=== PATIENT | female | born 1995 | race Caucasian/White ===

== ENCOUNTER 2017-01-20 17:04 | Inpatient (IN) | payer MEDICAID ==
[~2017-01-20] VITALS: Ht 157.5 cm; Wt 46.7 kg
[2017-01-20 18:11] LABS: BASOPHILS % (AUTO) 0.6 % (0.0-2.0); EOSINOPHILS % (AUTO) 1.6 % (1.0-6.0); HEMATOCRIT 43.3 % (36-46); HEMOGLOBIN 14.7 g/dL (12.0-16.0); LYMPHOCYTES # (AUTO) 1.8 K/uL (1.0-4.8); LYMPHOCYTES % (AUTO) 21.2 % (22.0-44.0); MEAN CORPUSCULAR HEMOGLOBIN 31.7 pg (26.0-34.0); MEAN CORPUSCULAR VOLUME 93 fL (80-100); MONOCYTES # (AUTO) 0.7 K/uL (0.1-1.0); MONOCYTES % (AUTO) 8.3 % (2.0-9.0); NEUTROPHILS # (AUTO) 5.7 K/uL (1.8-7.7); NEUTROPHILS % (AUTO) 68.3 % (40.0-70.0); PLATELET COUNT (AUTO) 184 K/uL (150-450); RED BLOOD CELL COUNT(AUTO) 4.63 MIL/uL (4.00-5.20); WHITE BLOOD COUNT (AUTO) 8.4 K/uL (4.5-11.0)
[2017-01-20 18:18] LABS: ANION GAP 12 mmol/L (8-16); CALCIUM, TOTAL 9.6 mg/dL (8.8-10.5); CARBON DIOXIDE 25 mmol/L (22-29); CHLORIDE 104 mmol/L (98-107); CREATININE 0.89 mg/dL (0.60-1.30); GLOMERULAR FILTR. RATE CALC > 60 mL/min (>60); POTASSIUM 3.9 mmol/L (3.5-5.1); SODIUM SERUM 141 mmol/L (136-145); UREA NITROGEN, BLOOD 13 mg/dL (7-18)
[2017-01-20 18:23] LABS: ALANINE AMINOTRANSFERASE 17 U/L (12-78); ALBUMIN 4.4 g/dL (3.4-5.0); ASPARTATE AMINOTRANSFERASE 16 U/L (15-37); BILIRUBIN,TOTAL 0.9 mg/dL (0.1-1.0); TOTAL PROTEIN, SERUM 8.2 g/dL (6.4-8.2)
[2017-01-20] MEDS ORDERED: LORazepam 2 MG TABLET PO PRN (22:00)
[2017-01-20] MEDS ORDERED: HALOPERIDOL 5 MG TABLET PO PRN (22:00)
[2017-01-20] MEDS ORDERED: ZOLPIDEM TARTRATE 10 MG TABLET PO PRN (22:00)
[2017-01-20 22:09] LABS: CHOL/HDL RATIO 2.5 (3.9-5.7)
[2017-01-20 22:12] LABS: APPEARANCE,URINE TURBID (CLEAR); GLUCOSE, URINE (UA) NEGATIVE (NEGATIVE); KETONES,URINE 40 mg/dL (NEGATIVE); LEUKOCYTE ESTERASE ,URINE MODERATE (NEGATIVE); OCCULT BLOOD,URINE NEGATIVE (NEGATIVE); PROTEIN,URINE NEGATIVE (NEGATIVE)
[2017-01-20 22:26] LABS: ADD UA MICROSCOPIC YES
[2017-01-20 22:37] LABS: AMORPHOUS SEDIMENT,UR Many /LPF (None Seen); RBC,URINE None Seen /HPF (0-2)
[2017-01-21 03:33] VITALS: BP 124/85
[2017-01-21 08:15] VITALS: BP 126/73
[2017-01-21] MEDS: SERTRALINE HCL 50 MG TABLET PO SCH (14:12)
[2017-01-21 16:08] VITALS: BP 117/78
[2017-01-21] MEDS: SULFAMETHOX/TRIMETH DS 800-160 MG/TABLET PO SCH (16:47)
[2017-01-21] MEDS ORDERED: NITROFURANTOIN/NITROFURAN MAC 100 MG CAPSULE [MACROBID] PO SCH (17:00)
[2017-01-22 06:00] VITALS: BP 127/67
[2017-01-22 08:02] VITALS: BP 118/75
[2017-01-22] MEDS: SERTRALINE HCL 50 MG TABLET PO SCH (09:18)
[2017-01-22] MEDS: SULFAMETHOX/TRIMETH DS 800-160 MG/TABLET PO SCH ×2 (09:18→16:34)
[2017-01-22 17:48] VITALS: BP 118/76
[2017-01-23 06:17] VITALS: BP 110/61
[2017-01-23 08:30] VITALS: BP 112/68
[2017-01-23] MEDS: SULFAMETHOX/TRIMETH DS 800-160 MG/TABLET PO SCH (09:07)
[2017-01-23] MEDS: SERTRALINE HCL 50 MG TABLET PO SCH (09:07)
[2017-01-23] MEDS ORDERED: SERT50TA12 PO (11:39)
[2017-01-23] MEDS ORDERED: SULF1TAB42 PO (11:39)
== END 2017-01-23 12:30 | disposition home or self-care (01) | DRG 751 ==
LOC: EMS 17:06 → B2S 22:30
PROVIDERS: ADMIT Psychiatry & Neurology Child & Adolescent Psychiatry; ATTEND Psychiatry & Neurology Child & Adolescent Psychiatry
DX: F33.2 Major depressive disorder, recurrent severe without psychotic features (principal); R45.851 Suicidal ideations; N39.0 Urinary tract infection, site not specified; F41.9 Anxiety disorder, unspecified; D64.9 Anemia, unspecified; F12.10 Cannabis abuse, uncomplicated; Z79.899 Other long term (current) drug therapy; Z83.3 Family history of diabetes mellitus; F15.90 Other stimulant use, unspecified, uncomplicated; F17.200 Nicotine dependence, unspecified, uncomplicated; Z71.6 Tobacco abuse counseling
CPT/HCPCS: 99285; G0480

== ENCOUNTER 2019-03-29 08:28 | Inpatient (IN) | payer MEDICAID, OTHER ==
[~2019-03-29] VITALS: Ht 162.6 cm; Wt 54.2 kg
[~2019-03-29 08:28] MED LIST: FLUO-191 PO; NALT50TA PO
[2019-03-29] MEDS ORDERED: HYDR-4061 PO (08:35)
[2019-03-29] MEDS ORDERED: SODIUM CHLORIDE 0.9% 1,000 ML IV ONE (08:45)
[2019-03-29] MEDS ORDERED: ONDANSETRON HCL 4 MG/2 ML VIAL IVP ONE ×2 (08:45→10:45)
[2019-03-29] MEDS ORDERED: ONDANSETRON HCL 4 MG/2 ML VIAL ONE (08:46)
[2019-03-29] MEDS ORDERED: NALOXONE HCL 1 MG/ML 2 ML SYG IVP ONE (09:00)
[2019-03-29 09:35] LABS: BASOPHILS % (AUTO) 0.2 % (0.0-2.0); EOSINOPHILS % (AUTO) 0.6 % (1.0-6.0); HEMATOCRIT 40.4 % (36-46); HEMOGLOBIN 13.5 g/dL (12.0-16.0); LYMPHOCYTES % (AUTO) 6.2 % (22.0-44.0); MEAN CORPUSCULAR HEMOGLOBIN 31.9 pg (26.0-34.0); MEAN CORPUSCULAR HGB CONC 33.5 G/dL (31.0-37.0); MEAN CORPUSCULAR VOLUME 95 fL (80-100); MONOCYTES # (AUTO) 0.6 K/uL (0.1-1.0); MONOCYTES % (AUTO) 3.5 % (2.0-9.0); NEUTROPHILS # (AUTO) 14.4 K/uL (1.8-7.7); PLATELET COUNT (AUTO) 162 K/uL (150-450); RED BLOOD CELL COUNT(AUTO) 4.24 MIL/uL (4.00-5.20); RED CELL DISTRIBUTION WIDTH 12.9 % (11.5-14.5)
[2019-03-29 09:39] LABS: NEUTROPHILS % (AUTO) 89.5 % (40.0-70.0)
[2019-03-29 09:47] LABS: ANION GAP 11 mmol/L (8-16); CALCIUM, TOTAL 7.7 mg/dL (8.8-10.5); CARBON DIOXIDE 23 mmol/L (22-29); CHLORIDE 104 mmol/L (98-107); CREATININE 0.68 mg/dL (0.60-1.30); GLOMERULAR FILTR. RATE CALC > 60 mL/min (>60); GLUCOSE,RANDOM 211 mg/dL (70-110); POTASSIUM 3.3 mmol/L (3.5-5.1); SODIUM SERUM 138 mmol/L (136-145); UREA NITROGEN, BLOOD 6 mg/dL (7-18)
[2019-03-29 09:51] LABS: AMPHET/METH SCREEN,URINE NEGATIVE (NEGATIVE); BARBITURATE SCREEN, URINE NEGATIVE (NEGATIVE); BENZODIAZEPINES SCREEN,URINE NEGATIVE (NEGATIVE); CANNABINOID SCREEN,URINE POSITIVE (NEGATIVE); COCAINE SCREEN,URINE NEGATIVE (NEGATIVE); METHADONE SCREEN, URINE NEGATIVE (NEGATIVE); OPIATE SCREEN,URINE POSITIVE (NEGATIVE)
[2019-03-29 09:52] LABS: PHENCYCLIDINE SCREEN,URINE NEGATIVE (NEGATIVE)
[2019-03-29 09:53] LABS: ACETAMINOPHEN 46 mcg/mL (10-30); ALANINE AMINOTRANSFERASE 11 U/L (12-78); ALBUMIN 3.5 g/dL (3.4-5.0); ALKALINE PHOSPHATASE 81 U/L (46-116); ASPARTATE AMINOTRANSFERASE 11 U/L (15-37); BILIRUBIN,TOTAL 0.4 mg/dL (0.1-1.0); TOTAL PROTEIN, SERUM 6.8 g/dL (6.4-8.2)
[2019-03-29 10:10] LABS: SALICYLATE 1.4 mg/dL (2.8-20.0)
[2019-03-29] MEDS ORDERED: ZOLPIDEM TARTRATE 10 MG TABLET PO PRN (15:15)
[2019-03-29] MEDS ORDERED: HALOPERIDOL 5 MG TABLET PO PRN (15:15)
[2019-03-29] MEDS ORDERED: LORazepam 2 MG TABLET PO PRN (15:15)
[2019-03-29 20:59] VITALS: BP 133/113
[2019-03-29] MEDS ORDERED: INFLUENZA VIRUS VACCINE QVS 2019-20 (3YR+)/PF 60 MCG/0.5 ML SYRINGE IM ONE (23:15)
[2019-03-30 03:50] VITALS: BP 124/75
[2019-03-30 06:57] LABS: CHOL/HDL RATIO 1.8 (3.9-5.7); FREE T4 (FREE THYROXINE) 1.32 ng/dL (0.76-1.46); THYROID STIMULATING HORMONE 0.99 uIU/mL (0.36-3.74)
[2019-03-30 08:00] VITALS: BP 114/64
[2019-03-30] MEDS ORDERED: LOPERAMIDE HCL 2 MG CAPSULE PO PRN (10:15)
[2019-03-30] MEDS ORDERED: ACETAMINOPHEN 325 MG TABLET PO PRN (10:15)
[2019-03-30] MEDS ORDERED: IBUPROFEN 600 MG TABLET PO PRN (10:15)
[2019-03-30] MEDS ORDERED: ONDANSETRON HCL 4 MG TABLET PO PRN (10:15)
[2019-03-30] MEDS ORDERED: OMEPRAZOLE 20 MG CAPSULE PO PRN (10:15)
[2019-03-30] MEDS ORDERED: BACITRACIN 28.4 GM OINTMENT TP PRN (10:15)
[2019-03-30] MEDS ORDERED: BENZOCAINE/MENTHOL LOZENGE MM PRN (10:15)
[2019-03-30] MEDS ORDERED: MAG HYDROX/AL HYDROX/SIMETH ES 30 ML SUSPENSION UDCUP PO PRN (10:15)
[2019-03-30] MEDS ORDERED: DOCUSATE SODIUM 100 MG CAPSULE PO PRN (10:15)
[2019-03-30] MEDS ORDERED: ALBUTEROL SULFATE HFA 90 MCG/PUFF 8 GM INHALER IH PRN (10:15)
[2019-03-30] MEDS ORDERED: CloNIDine HCL 0.1 MG TABLET PO PRN (10:15)
[2019-03-30] MEDS ORDERED: PETROLATUM,WHITE 28 GM JELLY TP PRN (10:15)
[2019-03-30] MEDS ORDERED: MAGNESIUM HYDROXIDE SUSPENSION 30 ML UDCUP PO PRN (10:15)
[2019-03-30] MEDS: BuPROPion HCL XL 150 MG ER TABLET PO SCH (11:11)
[2019-03-30 19:42] VITALS: BP 112/77
[2019-03-31 08:40] LABS: HEMOGLOBIN A1C 5.1 % (4.5-6.2)
[2019-03-31 08:44] LABS: BASOPHILS % (AUTO) 0.6 % (0.0-2.0); EOSINOPHILS % (AUTO) 2.4 % (1.0-6.0); HEMATOCRIT 41.6 % (36-46); LYMPHOCYTES # (AUTO) 1.2 K/uL (1.0-4.8); LYMPHOCYTES % (AUTO) 16.1 % (22.0-44.0); MEAN CORPUSCULAR HEMOGLOBIN 31.3 pg (26.0-34.0); MEAN CORPUSCULAR HGB CONC 33.7 G/dL (31.0-37.0); MEAN CORPUSCULAR VOLUME 93 fL (80-100); MONOCYTES # (AUTO) 0.3 K/uL (0.1-1.0); NEUTROPHILS # (AUTO) 5.9 K/uL (1.8-7.7); NEUTROPHILS % (AUTO) 76.9 % (40.0-70.0); PLATELET COUNT (AUTO) 191 K/uL (150-450); RED BLOOD CELL COUNT(AUTO) 4.48 MIL/uL (4.00-5.20); RED CELL DISTRIBUTION WIDTH 12.8 % (11.5-14.5)
[2019-03-31 08:52] LABS: ANION GAP 9 mmol/L (8-16); CALCIUM, TOTAL 8.6 mg/dL (8.8-10.5); CARBON DIOXIDE 26 mmol/L (22-29); CHLORIDE 102 mmol/L (98-107); CREATININE 0.74 mg/dL (0.60-1.30); GLOMERULAR FILTR. RATE CALC > 60 mL/min (>60); GLUCOSE,RANDOM 145 mg/dL (70-110); PHOSPHORUS 2.9 mg/dL (2.5-4.9); POTASSIUM 3.5 mmol/L (3.5-5.1); SODIUM SERUM 137 mmol/L (136-145); UREA NITROGEN, BLOOD 9 mg/dL (7-18)
[2019-03-31 08:53] LABS: ACETAMINOPHEN < 2 mcg/mL (10-30)
[2019-03-31] MEDS: BuPROPion HCL XL 150 MG ER TABLET PO SCH (09:07)
[2019-03-31 09:20] VITALS: BP 111/76
[2019-03-31 17:34] VITALS: BP 134/83
[2019-04-01] MEDS: BuPROPion HCL XL 150 MG ER TABLET PO SCH (08:33)
[2019-04-01 08:48] VITALS: BP 122/76
[2019-04-01] MEDS ORDERED: BUPR-93 PO (14:58)
== END 2019-04-01 16:05 | disposition home or self-care (01) | DRG 751 ==
LOC: EMS 08:29 → 3EI 15:30
PROVIDERS: ADMIT Psychiatry & Neurology Psychiatry; ATTEND Psychiatry & Neurology Psychiatry
DX: F33.2 Major depressive disorder, recurrent severe without psychotic features (principal); F41.9 Anxiety disorder, unspecified; G47.00 Insomnia, unspecified; K59.00 Constipation, unspecified; T39.1X2A Poisoning by 4-Aminophenol derivatives, intentional self-harm, initial encounter; Y92.89 Other specified places as the place of occurrence of the external cause; Z79.899 Other long term (current) drug therapy; Z28.21 Immunization not carried out because of patient refusal
CPT/HCPCS: 83036; 83735; 84100; 84436; 84439; 84443; 93005; 96361; 96374; 96375; G0480; G0481; J2310; J2405; J7030

== ENCOUNTER 2019-04-20 16:41 | Emergency (ER) | payer MEDICAID, OTHER ==
[~2019-04-20 16:41] MED LIST changes: +BUPR-93 PO; -FLUO-191 PO; -NALT50TA PO
== END 2019-04-20 17:01 | disposition left against medical advice (07) ==
LOC: EMS 16:42
DX: Z00.00 Encounter for general adult medical examination without abnormal findings (principal); Z53.21 Procedure and treatment not carried out due to patient leaving prior to being seen by health care provider

== ENCOUNTER 2019-07-09 16:03 | Inpatient (IN) | payer MEDICAID, OTHER ==
[~2019-07-09] VITALS: Ht 162.6 cm; Wt 60.3 kg
[2019-07-09 16:55] LABS: BASOPHILS % (AUTO) 0.6 % (0.0-2.0); EOSINOPHILS % (AUTO) 1.5 % (1.0-6.0); HEMATOCRIT 41.7 % (36-46); HEMOGLOBIN 13.9 g/dL (12.0-16.0); LYMPHOCYTES # (AUTO) 1.6 K/uL (1.0-4.8); LYMPHOCYTES % (AUTO) 13.9 % (22.0-44.0); MEAN CORPUSCULAR HEMOGLOBIN 30.7 pg (26.0-34.0); MEAN CORPUSCULAR HGB CONC 33.2 G/dL (31.0-37.0); MEAN CORPUSCULAR VOLUME 92 fL (80-100); MONOCYTES # (AUTO) 0.7 K/uL (0.1-1.0); MONOCYTES % (AUTO) 6.2 % (2.0-9.0); NEUTROPHILS # (AUTO) 8.9 K/uL (1.8-7.7); NEUTROPHILS % (AUTO) 77.8 % (40.0-70.0); PLATELET COUNT (AUTO) 188 K/uL (150-450); RED BLOOD CELL COUNT(AUTO) 4.51 MIL/uL (4.00-5.20); RED CELL DISTRIBUTION WIDTH 13.1 % (11.5-14.5)
[2019-07-09 17:02] LABS: AMPHET/METH SCREEN,URINE NEGATIVE (NEGATIVE); BARBITURATE SCREEN, URINE NEGATIVE (NEGATIVE); BENZODIAZEPINES SCREEN,URINE NEGATIVE (NEGATIVE); CANNABINOID SCREEN,URINE POSITIVE (NEGATIVE); COCAINE SCREEN,URINE NEGATIVE (NEGATIVE); METHADONE SCREEN, URINE NEGATIVE (NEGATIVE); OPIATE SCREEN,URINE NEGATIVE (NEGATIVE)
[2019-07-09 17:06] LABS: PHENCYCLIDINE SCREEN,URINE NEGATIVE (NEGATIVE)
[2019-07-09 17:07] LABS: ANION GAP 10 mmol/L (8-16); CALCIUM, TOTAL 9.3 mg/dL (8.8-10.5); CARBON DIOXIDE 27 mmol/L (22-29); CHLORIDE 104 mmol/L (98-107); CREATININE 0.67 mg/dL (0.60-1.30); GLOMERULAR FILTR. RATE CALC > 60 mL/min (>60); GLUCOSE,RANDOM 102 mg/dL (70-110); POTASSIUM 3.5 mmol/L (3.5-5.1); SODIUM SERUM 141 mmol/L (136-145); UREA NITROGEN, BLOOD 12 mg/dL (7-18)
[2019-07-09 17:13] LABS: ALANINE AMINOTRANSFERASE 24 U/L (12-78); ALBUMIN 3.8 g/dL (3.4-5.0); ALKALINE PHOSPHATASE 75 U/L (46-116); ASPARTATE AMINOTRANSFERASE 15 U/L (15-37); BILIRUBIN,TOTAL 0.3 mg/dL (0.1-1.0); TOTAL PROTEIN, SERUM 7.7 g/dL (6.4-8.2)
[2019-07-09] MEDS ORDERED: HydrOXYzine PAMOATE 50 MG CAPSULE PO PRN (17:30)
[2019-07-09] MEDS ORDERED: MAG HYDROX/AL HYDROX/SIMETH ES 30 ML SUSPENSION UDCUP PO PRN ×2 (17:30→20:30)
[2019-07-09] MEDS ORDERED: ACETAMINOPHEN 325 MG TABLET PO PRN ×2 (17:30→20:30)
[2019-07-09] MEDS ORDERED: LOPERAMIDE HCL 2 MG CAPSULE PO PRN ×2 (17:30→20:30)
[2019-07-09] MEDS ORDERED: QUEtiapine FUMARATE 100 MG TABLET PO PRN (17:30)
[2019-07-09] MEDS ORDERED: LORazepam 2 MG TABLET PO PRN (17:30)
[2019-07-09] MEDS ORDERED: MAGNESIUM HYDROXIDE SUSPENSION 30 ML UDCUP PO PRN ×2 (17:30→20:30)
[2019-07-09] MEDS ORDERED: GuaiFENesin/D-METHORPHAN [SUGAR-FREE] 200-20MG/10 ML SYRUP UDCUP PO PRN ×2 (17:30→20:30)
[2019-07-09] MEDS ORDERED: PROMETHAZINE HCL 25 MG TABLET PO PRN (17:30)
[2019-07-09] MEDS: THIAMINE HCL 100 MG TABLET PO SCH (17:49)
[2019-07-09 17:52] LABS: HCG,QUANTITATIVE < 1 mIU/mL (0-6)
[2019-07-09 19:46] VITALS: BP 115/78
[2019-07-09] MEDS ORDERED: NICOTINE 14 MG/24 HOUR PATCH TD PRN (20:30)
[2019-07-09] MEDS ORDERED: DOCUSATE SODIUM 100 MG CAPSULE PO PRN (20:30)
[2019-07-09] MEDS ORDERED: PETROLATUM,WHITE 28 GM JELLY TP PRN (20:30)
[2019-07-09] MEDS ORDERED: ONDANSETRON HCL 4 MG TABLET PO PRN (20:30)
[2019-07-09] MEDS ORDERED: CloNIDine HCL 0.1 MG TABLET PO PRN (20:30)
[2019-07-09] MEDS ORDERED: IBUPROFEN 400 MG TABLET PO PRN (20:30)
[2019-07-09] MEDS ORDERED: ALBUTEROL SULFATE HFA 90 MCG/PUFF 8 GM INHALER IH PRN (20:30)
[2019-07-09] MEDS ORDERED: INFLUENZA VIRUS VACCINE QVS 2019-20 (3YR+)/PF 60 MCG/0.5 ML SYRINGE IM ONE (23:45)
[2019-07-10 03:48] VITALS: BP 105/66
[2019-07-10 08:05] LABS: BASOPHILS % (AUTO) 0.9 % (0.0-2.0); EOSINOPHILS % (AUTO) 3.1 % (1.0-6.0); HEMATOCRIT 43.3 % (36-46); HEMOGLOBIN 14.6 g/dL (12.0-16.0); LYMPHOCYTES # (AUTO) 1.3 K/uL (1.0-4.8); MEAN CORPUSCULAR HEMOGLOBIN 31.2 pg (26.0-34.0); MEAN CORPUSCULAR HGB CONC 33.7 G/dL (31.0-37.0); MEAN CORPUSCULAR VOLUME 93 fL (80-100); MONOCYTES # (AUTO) 0.5 K/uL (0.1-1.0); MONOCYTES % (AUTO) 6.8 % (2.0-9.0); NEUTROPHILS # (AUTO) 5.8 K/uL (1.8-7.7); NEUTROPHILS % (AUTO) 73.2 % (40.0-70.0); PLATELET COUNT (AUTO) 196 K/uL (150-450); RED BLOOD CELL COUNT(AUTO) 4.67 MIL/uL (4.00-5.20); RED CELL DISTRIBUTION WIDTH 13.4 % (11.5-14.5)
[2019-07-10 08:22] LABS: HEMOGLOBIN A1C 5.3 % (3.8-5.6)
[2019-07-10 08:43] VITALS: BP 116/73
[2019-07-10 08:48] LABS: ALANINE AMINOTRANSFERASE 23 U/L (12-78); ALBUMIN 3.7 g/dL (3.4-5.0); ALKALINE PHOSPHATASE 81 U/L (46-116); ANION GAP 10 mmol/L (8-16); ASPARTATE AMINOTRANSFERASE 16 U/L (15-37); BILIRUBIN,TOTAL 0.3 mg/dL (0.1-1.0); CALCIUM, TOTAL 9.2 mg/dL (8.8-10.5); CARBON DIOXIDE 26 mmol/L (22-29); CHLORIDE 104 mmol/L (98-107); CHOL/HDL RATIO 2.7 (3.9-5.7); CHOLESTEROL 140 mg/dL (131-200); CREATININE 0.84 mg/dL (0.60-1.30); FREE T4 (FREE THYROXINE) 1.16 ng/dL (0.76-1.46); GLOMERULAR FILTR. RATE CALC > 60 mL/min (>60); GLUCOSE,RANDOM 119 mg/dL (70-110); HDL CHOLESTEROL 52 mg/dL (40-60); LDL CHOL (CALC.) 74 mg/dL (0-130); POTASSIUM 3.7 mmol/L (3.5-5.1); SODIUM SERUM 140 mmol/L (136-145); THYROID STIMULATING HORMONE 2.38 uIU/mL (0.36-3.74); TOTAL PROTEIN, SERUM 7.8 g/dL (6.4-8.2); TRIGLYCERIDES 71 mg/dL (15-150); UREA NITROGEN, BLOOD 9 mg/dL (7-18)
[2019-07-10] MEDS: FOLIC ACID 1 MG TABLET PO SCH (09:09)
[2019-07-10] MEDS: THIAMINE HCL 100 MG TABLET PO SCH ×2 (09:09→17:11)
[2019-07-10] MEDS: NALTREXONE HCL 50 MG TABLET PO SCH (09:09)
[2019-07-10] MEDS: MULTIVITAMINS WITH MINERALS, THERAPEUTIC TABLET PO SCH (09:09)
[2019-07-10] MEDS: FLUoxetine HCL 20 MG CAPSULE PO SCH (09:09)
[2019-07-10 14:08] VITALS: BP 144/83
[2019-07-10] MEDS ORDERED: ONDANSETRON HCL 4 MG/2 ML VIAL IM PRN (16:00)
[2019-07-10 16:07] VITALS: BP 122/65
[2019-07-10] MEDS ORDERED: OLANZapine 5 MG RAPDIS TABLET PO SCH (21:00)
[2019-07-11 04:48] VITALS: BP 105/60
[2019-07-11 08:22] VITALS: BP 110/62
[2019-07-11] MEDS: NALTREXONE HCL 50 MG TABLET PO SCH (08:38)
[2019-07-11] MEDS: MULTIVITAMINS WITH MINERALS, THERAPEUTIC TABLET PO SCH (08:38)
[2019-07-11] MEDS: THIAMINE HCL 100 MG TABLET PO SCH ×2 (08:38→16:46)
[2019-07-11] MEDS: FOLIC ACID 1 MG TABLET PO SCH (08:38)
[2019-07-11] MEDS: FLUoxetine HCL 20 MG CAPSULE PO SCH (08:38)
[2019-07-11] MEDS ORDERED: NALT50TA PO (15:56)
[2019-07-11] MEDS ORDERED: OLAN5TAB30 PO (15:56)
[2019-07-11] MEDS ORDERED: BUPR-47 PO (15:56)
[2019-07-11 16:44] VITALS: BP 111/66
[2019-07-11] MEDS ORDERED: OLANZapine 10 MG RAPDIS TABLET PO SCH (21:00)
[2019-07-12 02:15] VITALS: BP 112/68
[2019-07-12 08:25] VITALS: BP 90/70
[2019-07-12] MEDS: THIAMINE HCL 100 MG TABLET PO SCH (08:53)
[2019-07-12] MEDS: MULTIVITAMINS WITH MINERALS, THERAPEUTIC TABLET PO SCH (08:53)
[2019-07-12] MEDS: NALTREXONE HCL 50 MG TABLET PO SCH (08:54)
[2019-07-12] MEDS: FOLIC ACID 1 MG TABLET PO SCH (08:54)
[2019-07-12] MEDS ORDERED: BuPROPion HCL XL 150 MG ER TABLET PO SCH (09:00)
== END 2019-07-12 17:40 | disposition home or self-care (01) | DRG 751 ==
LOC: EMS 16:05 → B3A 17:30
PROVIDERS: ADMIT Psychiatry & Neurology Psychiatry; ATTEND Psychiatry & Neurology Psychiatry
DX: F33.9 Major depressive disorder, recurrent, unspecified (principal); R45.851 Suicidal ideations; D72.829 Elevated white blood cell count, unspecified; F10.10 Alcohol abuse, uncomplicated; F41.9 Anxiety disorder, unspecified; F12.90 Cannabis use, unspecified, uncomplicated; F17.210 Nicotine dependence, cigarettes, uncomplicated; Z65.3 Problems related to other legal circumstances; Z87.440 Personal history of urinary (tract) infections; Z91.19 Patient's noncompliance with other medical treatment and regimen
CPT/HCPCS: 83036; 84439; 84443; 86592; 90686; G0480; J2405; Q0162